=== PATIENT | female | born 1990 | race Caucasian/White ===

== ENCOUNTER 2022-03-06 07:23 | Inpatient (IN) | payer OTHER ==
[~2022-03-06] VITALS: Ht 162.6 cm; Wt 102.0 kg
[2022-03-06] VITALS (193 sets, daily range): BP systolic 79–150; BP diastolic 36–124
[2022-03-06 07:35] LABS: HEMATOCRIT 34.5 % (37.0-47.0); HEMOGLOBIN 10.8 g/dl (12.0-16.0); MEAN CELL VOLUME 80.2 fL CALC (80.0-100.0); MEAN CORPUSCULAR HGB 25.1 pG CALC (26.0-32.0); MEAN CORPUSCULAR HGB CONC 31.3 g/dL CAL (32.0-36.0); NEUT# 2.79 thou/uL (2.00-7.15); RED BLOOD COUNT 4.3 mill/uL (4.20-5.60); RED CELL DISTRI WIDTH 13.1 % (11.5-15.5)
[2022-03-06 07:47] LABS: ALBUMIN 3.8 g/dL (3.2-5.0); ALKALINE PHOSPHATASE 63 u/l (38-126); ANION GAP 8 (6-22 (CALC)); BILIRUBIN, TOTAL 0.2 mg/dL (0.0-1.4); BUN 17 mg/dL (7-17); BUN/CREATININE RATIO 30 (12-20 (CALC)); CARBON DIOXIDE 30 mmol/l (22-30); CHLORIDE 103 mmol/l (95-108); CREATININE 0.6 mg/dL (0.5-1.0); GFR FOR AFR.AMER. > 60 ML/MIN (>=60 (CALC)); GFR OTHER RACES > 60 ML/MIN (>=60 (CALC)); POTASSIUM 4.2 mmol/l (3.5-5.1); SGOT/AST 28 u/l (14-36); SODIUM 137 mmol/l (137-146); TOTAL PROTEIN 6.7 g/dL (6.3-8.2)
[2022-03-06] MEDS ORDERED: CLONIDINE0.1 MG PO (10:10)
[2022-03-06] MEDS ORDERED: NALTREXONE50 MG PO (10:11)
[2022-03-06] MEDS ORDERED: KLONOPIN2 MG PO (10:11)
[2022-03-07] VITALS (25 sets, daily range): BP systolic 71–158; BP diastolic 50–123
[2022-03-07 05:44] LABS: HEMATOCRIT 29.3 % (37.0-47.0); HEMOGLOBIN 9.8 g/dl (12.0-16.0); IMMATURE GRANULOCYTES 0.2 % (0.0-5.0); MEAN CELL VOLUME 75.7 fL CALC (80.0-100.0); MEAN CORPUSCULAR HGB 25.3 pG CALC (26.0-32.0); MEAN CORPUSCULAR HGB CONC 33.4 g/dL CAL (32.0-36.0); NEUT# 6.96 thou/uL (2.00-7.15); RED BLOOD COUNT 3.87 mill/uL (4.20-5.60); RED CELL DISTRI WIDTH 12.9 % (11.5-15.5)
[2022-03-07 05:58] LABS: ALBUMIN 3.4 g/dL (3.2-5.0); ALKALINE PHOSPHATASE 65 u/l (38-126); BUN 13 mg/dL (7-17); BUN/CREATININE RATIO 25 (12-20 (CALC)); CHLORIDE 105 mmol/l (95-108); CREATININE 0.5 mg/dL (0.5-1.0); GFR FOR AFR.AMER. > 60 ML/MIN (>=60 (CALC)); GFR OTHER RACES > 60 ML/MIN (>=60 (CALC)); MAGNESIUM 1.8 mg/dL (1.6-2.3); POTASSIUM 3.8 mmol/l (3.5-5.1); SGOT/AST 36 u/l (14-36); SODIUM 133 mmol/l (137-146)
[2022-03-07 06:01] LABS: ANION GAP 10 (6-22 (CALC)); BILIRUBIN, TOTAL 0.5 mg/dL (0.0-1.4); CARBON DIOXIDE 22 mmol/l (22-30)
[2022-03-07 14:51] LABS: ANION GAP 7 (6-22 (CALC)); BUN 16 mg/dL (7-17); BUN/CREATININE RATIO 27 (12-20 (CALC)); CARBON DIOXIDE 25 mmol/l (22-30); CHLORIDE 107 mmol/l (95-108); CREATININE 0.6 mg/dL (0.5-1.0); GFR FOR AFR.AMER. > 60 ML/MIN (>=60 (CALC)); GFR OTHER RACES > 60 ML/MIN (>=60 (CALC)); POTASSIUM 3.6 mmol/l (3.5-5.1); SODIUM 136 mmol/l (137-146)
[2022-03-08] VITALS (14 sets, daily range): BP systolic 61–150; BP diastolic 43–103
[2022-03-08 08:21] LABS: ANION GAP 7 (6-22 (CALC)); BUN 15 mg/dL (7-17); BUN/CREATININE RATIO 28 (12-20 (CALC)); CARBON DIOXIDE 27 mmol/l (22-30); CHLORIDE 107 mmol/l (95-108); CREATININE 0.5 mg/dL (0.5-1.0); GFR FOR AFR.AMER. > 60 ML/MIN (>=60 (CALC)); GFR OTHER RACES > 60 ML/MIN (>=60 (CALC)); POTASSIUM 3.2 mmol/l (3.5-5.1); SODIUM 138 mmol/l (137-146)
== END 2022-03-08 15:51 | disposition home or self-care (01) | DRG 204 ==
LOC: ANR 07:23 → MS2 07:24 → ANR 16:39 → ICU 03-07 13:50 → ANR 03-07 20:46 → ICU 03-07 20:47 → MS2 03-08 11:15
PROVIDERS: ADMIT Hospitalist; ATTEND Anesthesiology
PROC: 0T9B70Z Drainage of Bladder with Drainage Device, Via Natural or Artificial Opening (ICD-10-PCS; principal; 2022-03-07)
PROC: 04HK33Z Insertion of Infusion Device into Right Femoral Artery, Percutaneous Approach (ICD-10-PCS; 2022-03-07)
PROC: 5A09357 Assistance with Respiratory Ventilation, Less than 24 Consecutive Hours, Continuous Positive Airway Pressure (ICD-10-PCS; 2022-03-07)
DX: R06.03 Acute respiratory distress (principal); F11.20 Opioid dependence, uncomplicated; F05 Delirium due to known physiological condition; E87.1 Hypo-osmolality and hyponatremia; E87.3 Alkalosis; R09.02 Hypoxemia; R91.8 Other nonspecific abnormal finding of lung field; E66.9 Obesity, unspecified; Z72.0 Tobacco use; F15.10 Other stimulant abuse, uncomplicated
CPT/HCPCS: J2060; J3475